=== PATIENT | female | born 1955 | race Caucasian/White ===

== ENCOUNTER → 2018-01-04 10:42 | Outpatient (CLI) | payer OTHER, SELFPAY ==
--- NOTE | 2018-01-04 10:54 | NVE_ITS ---
Venous Exam Indications: 729.5 Pain in limb. IMPRESSIONS 1. There is no evidence of significant Reflux. 2. Superficial vein thrombosis of varicose vein on inner side above left knee Left lower extremity venous duplex evaluation. Doppler flow study including spectral analysis, color and graves scale imaging. Location: Vascular laboratory. Patient status: Outpatient. CRITICAL FINDINGS - Reported to: carmita - Read back and verified. - 01/04/18 - 0 - SVT Tables: Venous flow and imaging: + +-------+ + Location Overall Flow properties + +-------+ + Left common femoral Patent Normal phasicity; spontaneous; normal augmentation; compressible + +-------+ + Left saphenofemoral junction Patent Compressible + +-------+ + Left profunda femoral Patent Compressible + +-------+ + Left femoral Patent Normal phasicity; spontaneous; normal augmentation; compressible + +-------+ + Left greater saphenous Patent Normal phasicity; spontaneous; normal augmentation; compressible + +-------+ + Left popliteal Patent Normal phasicity; spontaneous; normal augmentation; compressible + +-------+ + Left posterior tibial Patent Compressible + +-------+ + Left peroneal Patent Compressible + +-------+ + Left gastrocnemius Patent Compressible + +-------+ + Left soleal Patent Compressible + +-------+ + (Report amended ) Electronically signed by: Leif Castellanos [id number]
== END ==
PROVIDERS: PCP Nurse Practitioner Family; Visit Provider Nurse Practitioner Family
DX: M79.605 Pain in left leg (principal)
CPT/HCPCS: 93971

== ENCOUNTER → 2018-02-09 09:53 | Outpatient (CLI) | payer OTHER, SELFPAY ==
--- NOTE | 2018-02-09 09:55 | MM_ITS ---
MM Dig screening mamm BI w/CAD CAD Screening ORDERING PHYSICIAN : Edwin Bingham MD PATIENT AGE: 62 years GENDER: Female COMPARISON: Previous mammograms from this facility have been purged as per Hospital set guidelines. INDICATION: Routine screening. No hormones. No new complaints previous benign excisional biopsy right breast at 10 o'clock position. TECHNIQUE: Standard CC and MLO images were obtained. R2 CAD reviewed. FINDINGS: Mild asymmetry. Mild to moderate residual fibroglandular elements bilateral. RIGHT BREAST:No areas of concern at the right breast. Follow-up one year on the right recommended LEFT BREAST:Slight architectural irregularity with question slight stellate appearing area on MLO & cc view. However this seems to dissipate on the axillary cc view and could reflect some scarring.. 10 o'clock position left breast.. Would however suggest the patient return for additional spot views here at her convenience. Suggest MLO, 90 degree spot views along with axillary cc spot of this area. If any density persist ultrasound suggested to also surveyed architecture here. IMPRESSION... 1. Left breast: Suggestion minimal focal density with mild architectural distortion at upper-outer quadrant left breast. (Although this does seem to dissipate on axillary cc view) However with this I would recommend additional spot views of upper-outer quadrant left breast. 2. Right breast unremarkable follow-up one year on right. Note(Please also double check history when patient returns, to verify the previous biopsy was indeed at 10 o'clock position RIGHT breast rather than LEFT , as is the mild architectural distortion suggested today towards upper-outer quadrant left breast certainly could be could be compatible with previous biopsy;. I see no such evidence of previous biopsy at upper-outer quadrant right breast this mammogram).) BI-RADS Category: 0 Need Additional Imaging Evaluaiton. RECOMMENDED FOLLOW-UP: IMM - IMMEDIATE FOLLOW-UP RECOMMENDED Spot views left breast upper-outer quadrant (A letter has been sent to the patient regarding results of the study.)
== END ==
PROVIDERS: PCP Nurse Practitioner Family; Visit Provider Family Medicine
DX: Z12.31 Encounter for screening mammogram for malignant neoplasm of breast (principal)
CPT/HCPCS: 77067

== ENCOUNTER → 2018-02-24 15:14 | Outpatient (CLI) | payer OTHER, SELFPAY ==
--- NOTE | 2018-02-24 14:52 | MM_ITS ---
MM Dig mamm DX unilat LT CAD . ORDERING PHYSICIAN : Allie Barrientos MD PATIENT AGE: 62 years GENDER: Female COMPARISON: Recent screening study 02/09/2018 otherwise no previous mammogram INDICATION: Further evaluation asymmetric density upper-outer quadrant left breast TECHNIQUE: Spot views left breast CC and 90 degree and MLO images were obtained. FINDINGS:/LEFT BREAST:: The area of questionable architectural irregularity at the far lateral left breast seen on recent screening study, dissipates on today's spot views. Less evident. I would however recommend a follow-up left mammogram as well as right mammogram in 6 months to confirm stable baseline character since no studies prior to January 2018 for comparison This were to sure minimal density mild asymmetry are stable and baseline --------IMPRESSION: 1. Additional views decreased concern regarding any significant new findings here at upper-outer quadrant Left breast. However I would recommend a follow-up left and right mammogram in 6 months. It to ensure stability of the area evaluated today as well as areas of mild asymmetry bilaterally BI-RADS Category: 3 Benign Finding Short Term Follow-up RECOMMENDED FOLLOW-UP: 6M 6 MONTH FOLLOW-UP *Bilateral mammogram 6 months recommended to confirm & established stable baseline bilaterally (A letter has been sent to the patient regarding results of the study.) .
== END ==
PROVIDERS: PCP Nurse Practitioner Family; Visit Provider Family Medicine
DX: R92.8 Other abnormal and inconclusive findings on diagnostic imaging of breast (principal)
CPT/HCPCS: 77065

== ENCOUNTER → 2018-10-05 10:02 | Outpatient (POV) | payer OTHER, SELFPAY | PROVIDERS: Visit Provider Dermatology | DX: Z00.00 Encounter for general adult medical examination without abnormal findings (principal) ==

== ENCOUNTER → 2018-10-15 08:58 | Outpatient (CLI) | payer OTHER, SELFPAY ==
--- NOTE | 2018-10-15 | NVE_ITS ---
Venous Exam Indications: 729.5 Pain in limb. IMPRESSIONS 1. There is no evidence of significant Reflux. 2. Deep vein thrombosis involving the Left gastrocnemius Left lower extremity venous duplex evaluation. Doppler flow study including spectral analysis, color and graves scale imaging. Location: Vascular laboratory. Patient status: Outpatient. CRITICAL FINDINGS - Reported to: Whitney - Read back and verified. - 10/15/18929 - DVT Tables: Venous flow and imaging: + + + + Location Overall Flow properties + + + + Left common femoral Patent Normal phasicity; spontaneous; normal augmentation; compressible + + + + Left saphenofemoral Patent Compressible junction + + + + Left profunda femoral Patent Compressible + + + + Left femoral Patent Normal phasicity; spontaneous; normal augmentation; compressible + + + + Left greater saphenous Patent Normal phasicity; spontaneous; normal augmentation; compressible + + + + Left popliteal Patent Normal phasicity; spontaneous; normal augmentation; compressible + + + + Left posterior tibial Patent Compressible + + + + Left peroneal Patent Compressible + + + + Left gastrocnemius Partially occluded Partially compressible + + + + Left soleal Patent Compressible + + + + (Report amended ) Electronically signed by: Leif Castellanos [id number]
== END ==
PROVIDERS: PCP Family Medicine; Visit Provider Nurse Practitioner
DX: M79.662 Pain in left lower leg (principal)
CPT/HCPCS: 93971

== ENCOUNTER → 2018-11-16 13:16 | Outpatient (POV) | payer OTHER, SELFPAY | PROVIDERS: Visit Provider Dermatology | DX: Z00.00 Encounter for general adult medical examination without abnormal findings (principal) ==

== ENCOUNTER → 2020-05-21 16:50 | Outpatient (CLI) | payer MEDICARE, SELFPAY ==
--- NOTE | 2020-05-21 16:54 | MR_ITS ---
PROCEDURE: MR ELBOW LT WO CON CLINICAL INDICATION: RUPTURE OF LEFT DISTAL BICEPS TENDON S/P INJURY May WITH BRUISING TPO ANTERIOR SURFACE OF LEFT ELBOW AND DISTAL HUMERUS. PT STATES SHE HEARD AND FELT A POP WHEN SHE RAISED A BAG OF FEED UP. COMPARISON: No exams were available for comparison TECHNIQUE: Routine multiplanar multi echo sequences are performed without gadolinium enhancement. FINDINGS: There does not appear to be a complete tear of the bicipital tendon. There is thinning of the bicipital tendon at its insertion but no definite tear.. Please correlate with clinical findings. Brachialis tendon appears intact. The ulnar collateral ligament appears intact. There is some increased T2 signal in the cephalad portion of the radial collateral ligament which could represent partial tear or sprain. No fracture or dislocation. No abnormal fluid collections.. There is increased T2 signal at the common extensor tendon insertion which may be due to lateral epicondylitis or tear of the lateral collateral ligament.. The common flexor tendon has an unremarkable appearance. IMPRESSION: 1. No evidence of bicipital tendon tear at the elbow. There is some thinning of the bicipital tendon distally which is nonspecific.. 2. Lateral epicondylitis versus tear of the extensor tendon at the lateral epicondyle Dictated by: Leif Castellanos MD 05/24/2020 12:06 Leif Castellanos MD in [place] 05/24/2020 12:06
== END ==
PROVIDERS: PCP Family Medicine; Visit Provider Family Medicine
DX: S46.212A Strain of muscle, fascia and tendon of other parts of biceps, left arm, initial encounter (principal)
CPT/HCPCS: 73221

== ENCOUNTER → 2020-07-27 10:45 | Outpatient (CLI) | payer MEDICARE, SELFPAY | PROVIDERS: PCP Family Medicine; Visit Provider Family Medicine | DX: Z03.818 Encounter for observation for suspected exposure to other biological agents ruled out (principal) | CPT/HCPCS: U0003 ==

== ENCOUNTER → 2021-05-07 07:30 | Outpatient (CLI) | payer MEDICARE, SELFPAY ==
--- NOTE | 2021-05-07 07:42 | XR_ITS ---
PROCEDURE: XR CHEST 2V CLINICAL HISTORY: CHEST PAIN SOA,,NONSMOKER COMPARISON: No exams were available for comparison FINDINGS: The cardiomediastinal silhouette and pulmonary vascularity are within normal limits. There is hyperinflation with vascular attenuation consistent with small airway disease such as COPD, asthma, or bronchitis. No lobar consolidation or collapse Minimal S curvature in the thoracic spine IMPRESSION: Hyperinflation otherwise negative Dictated by: Leif Castellanos MD 05/07/2021 07:55 Leif Castellanos MD in [place] 05/07/2021 07:55
[2021-05-07 07:53] LABS: Microscopic, Urine URINE MICROSCOPIC (MICROSCOPIC)
--- NOTE | 2021-05-07 08:10 | ECG_ITS ---
APPROVED REPORT Exam: Resting ECG HR:61 bpm ECG Measurements Heart Rate 61 AXES KS 182 P 54 QRSd 80 QRS 65 QT 392 T 54 QTc 394 Conclusion Normal sinus rhythm Cannot rule out Anterior infarct, age undetermined Abnormal ECG Electronically signed by : Partha Perales MD 05/07/2021 10:44:28
[2021-05-07 08:15] LABS: Basophils # 0.1 K/mm3 (0-0.2); Basophils % 1.1 % (0.1-2.0); Eosinophils # 0.3 K/mm3 (0.0-0.4); Eosinophils % 5.4 % (0.1-12.0); Hematocrit 43.6 % (37.0-47.0); Hemoglobin 13.9 g/dL (12.2-16.2); Lymphocytes # 1.5 K/mm3 (0.7-4.5); Lymphocytes % 26.6 % (10-50); Mean Corpuscular HGB Conc 31.9 g/dL (31.8-35.4); Mean Corpuscular Volume 94.2 fl (81-99); Mean Platelet Volume 7.5 fl (7.4-10.4); Monocytes # 0.4 K/mm3 (0.1-1.0); Monocytes % 7.1 % (1.7-9.3); Neutrophils # 3.3 K/mm3 (1.8-7.8); Neutrophils % 59.7 % (37.0-80.0); Platelet Count 271 K/mm3 (142-424); Red Blood Count 4.63 M/mm3 (4.20-5.40); Red Cell Distribution Width 13.2 % (11.5-17.5); White Blood Count 5.5 K/mm3 (4.8-10.8)
[2021-05-07 08:16] LABS: Appearance,Urine CLEAR (Clear); Bilirubin,Urine Negative (Negative); Blood, Urine TRACE-I (Negative); Color,Urine YELLOW (Yellow); Glucose,Urine (UA) Negative (Negative); Ketones,Urine Negative (Negative); Leukocyte Esterase,Urine 3+ (Negative); Nitrate,Urine Negative (Negative); PH,Urine 7.5 (5.0-8.5); Protein,Urine Negative (Negative); Specific Gravity, Urine 1.015 (1.005-1.030); Urobilinogen,Urine 0.2 EU/dl (0.2)
[2021-05-07 08:28] LABS: Bacteria,Urine 1+ /lpf; WBC,Urine 20-50 #/hpf (0-3)
[2021-05-07 08:37] LABS: Activated Partial Thrombo Time 26.6 seconds (22.8-30.6); INR 0.89 (0.9-1.1); Prothrombin Time 10.6 seconds (10.1-12.5)
[2021-05-07 08:43] LABS: Chloride 106 mmol/L (98-107); Sodium 141 mmol/L (136-145)
[2021-05-07 08:46] LABS: Anion Gap 12.5 mEq/L (5-15); Blood Urea Nitrogen 16 mg/dl (7-17); Carbon Dioxide 27 mmol/L (22.0-30.0); Estimated Glomerular Filt Rate 84 ml/min (>60); GFR (African American) 101 ML/MIN (>60); Glucose 100 mg/dl (74-100); Potassium 4.5 mmoL/L (3.5-5.1)
== END ==
PROVIDERS: PCP Family Medicine; Visit Provider Family Medicine
DX: Z01.818 Encounter for other preprocedural examination (principal); Z79.82 Long term (current) use of aspirin; Z51.81 Encounter for therapeutic drug level monitoring; R82.90 Unspecified abnormal findings in urine
CPT/HCPCS: 36415; 71046; 80048; 81001; 85025; 85610; 85730; 87086; 87088; 93005

== ENCOUNTER → 2022-10-07 08:27 | Outpatient (CLI) | payer MEDICARE, SELFPAY ==
--- NOTE | 2022-10-07 08:30 | MM_ITS ---
PROCEDURE INFORMATION: Exam: MG Bilateral Screening 3D Mammography Exam date and time: 10/07/2022 8:23 AM Age: 67 years old Clinical indication: Screening. No family history of breast cancer. History of benign right excisional biopsy. TECHNIQUE: Imaging protocol: Bilateral Screening tomosynthesis and 2D mammography including computer-aided detection (CAD) when performed. COMPARISON: 1. MG DXLT MM Dig mamm DX unilat LT CAD 02/24/2018 3:27 PM 2. MG SCBI MM Dig screening mamm BI w/CAD 02/09/2018 10:06 AM FINDINGS: MAMMOGRAPHY: Breast composition: There are scattered areas of fibroglandular density. Mass: None. Architectural distortion: None. Calcifications: No suspicious calcifications. Asymmetric density: None. Skin thickening: None. Axillary adenopathy: None. IMPRESSION: No mammographic evidence of malignancy. Annual screening is recommended unless otherwise clinically indicated. ASSESSMENT: BI-RADS Category 1: Negative
--- NOTE | 2022-10-07 08:30 | XR_ITS ---
FINAL REPORT TECHNIQUE: Bone densitometry calculations of the lumbar spine and left hip were obtained. CLINICAL HISTORY: . post menopausal screening FINDINGS: DEXA BONE DENSITY AXIAL SKELETON Using L1-4, the bone mineral density of the spine is 1.075 g/cm2, corresponding to T-score of 0.3. Note these values are likely falsely elevated secondary to hypertrophic change. Using the right hip, the bone mineral density of the femoral neck is 0.679 g/cm2, corresponding to a T-score of -1.5. Using the left hip, the bone mineral density of the femoral neck is 0.703 g/cm2, corresponding to a T-score of -1.3. NOTE: T-score: Standard deviation compared with peak bone mass of young adult mean. *Following the recommendations of the International Society of Bone densitometry, classification of hip BMD is based on the lower of two T-scores; total hip or femoral neck. IMPRESSION: Diminished bone mineral density of the lumbar spine and hips consistent with osteopenia. FRAX 10 year fracture risk is 9.7% for a hip fracture and 1.2% for a major osteoporotic fracture based on the right hip results. Reviewed, Interpreted and Dictated by Rory Osborn MD Transcribed by Ruth Galaviz Authenticated and . [facility]
[2022-10-07 08:57] LABS: Basophils # 0.1 K/mm3 (0-0.2); Eosinophils # 0.4 K/mm3 (0.0-0.4); Eosinophils % 5.8 % (0.1-12.0); Hematocrit 42.4 % (37.0-47.0); Hemoglobin 13.9 g/dL (12.2-16.2); Lymphocytes # 1.6 K/mm3 (0.7-4.5); Lymphocytes % 22.1 % (10-50); Mean Corpuscular HGB Conc 32.7 g/dL (31.8-35.4); Mean Corpuscular Hemoglobin 29.8 pg (27.0-31.2); Mean Corpuscular Volume 90.9 fl (81-99); Mean Platelet Volume 7.3 fl (7.4-10.4); Monocytes # 0.4 K/mm3 (0.1-1.0); Monocytes % 5.4 % (1.7-9.3); Neutrophils # 4.9 K/mm3 (1.8-7.8); Neutrophils % 65.7 % (37.0-80.0); Platelet Count 295 K/mm3 (142-424); Red Blood Count 4.67 M/mm3 (4.20-5.40); White Blood Count 7.4 K/mm3 (4.8-10.8)
[2022-10-07 09:46] LABS: Alanine Aminotransferase 14 U/L (12-78); Albumin Level 4.2 g/dl (3.5-5.0); Albumin/Globulin Ratio 1.7 (1.1-1.8); Alkaline Phosphatase 84 U/L (38-126); Anion Gap 9.5 mEq/L (5-15); Aspartate Amino Transferase 23 U/L (14-36); Bilirubin,Total 0.9 mg/dl (0.2-1.3); Blood Urea Nitrogen 14 mg/dl (7-17); Carbon Dioxide 29 mmol/L (22.0-30.0); Chloride 107 mmol/L (98-107); Chol/HDL Ratio 2.9 (1-3.5); Cholesterol 162 mg/dl (140-200); Estimated Glomerular Filt Rate 83 ml/min (>60); GFR (African American) 101 ML/MIN (>60); Globulin 2.5 g/dL (1.3-3.2); Glucose 95 mg/dl (74-100); HDL Cholesterol 56 mg/dl (40-60); Potassium 4.5 mmoL/L (3.5-5.1); Sodium 141 mmol/L (136-145); Total Protein,Serum 6.7 g/dl (6.3-8.2); Triglycerides 94 mg/dl (30-150); VLDL Cholesterol 19 mg/dL (0-40)
[2022-10-07 09:57] LABS: Direct LDL Cholesterol 87.53 mg/dL (100-129)
[2022-10-07 10:15] LABS: Thyroid Stimulating Hormone 4.24 uIU/mL (0.465-4.68)
== END ==
PROVIDERS: PCP Family Medicine; Visit Provider Family Medicine
DX: R00.1 Bradycardia, unspecified (principal); Z12.31 Encounter for screening mammogram for malignant neoplasm of breast; Z78.0 Asymptomatic menopausal state
CPT/HCPCS: 36415; 77063; 77067; 77080; 80053; 80061; 84443; 85025

== ENCOUNTER 2024-03-16 10:51 | Outpatient (CLI) | payer MEDICARE, SELFPAY ==
--- NOTE | 2024-03-16 11:03 | ECG_ITS ---
APPROVED REPORT Exam: Resting ECG HR:56 bpm ECG Measurements Heart Rate 56 AXES MA 178 P 36 QRSd 84 QRS 50 QT 401 T 50 QTc 393 Conclusion SINUS BRADYCARDIA LOW QRS VOLTAGE IN PRECORDIAL LEADS [QRS DEFLECTION < 1.0 mV IN CHEST LEADS] BORDERLINE ECG UNCONFIRMED REPORT Electronically signed by : Partha Perales MD 03/19/2024 10:55:25
--- NOTE | 2024-03-16 11:07 | XR_ITS ---
FINAL REPORT CLINICAL HISTORY: [facility] PA[facility],SOB OR LUNG CONDITIONS FINDINGS: PA and lateral views of the chest are obtained. There is no prior exam for comparison. The cardiac and mediastinal silhouettes are within normal limits. The lungs are clear. There is no pleural effusion, pneumothorax, or acute osseous abnormality. IMPRESSION: No radiographic evidence of acute cardiac or pulmonary disease. Reviewed, Interpreted and Dictated by Veronique Asencio MD Transcribed by Mikaela Alford Authenticated and [facility]
== END 2024-03-16 23:59 | disposition home or self-care (01) ==
PROVIDERS: PCP Family Medicine; Visit Provider Physician Assistant
DX: Z01.818 Encounter for other preprocedural examination (principal)
CPT/HCPCS: 71046; 93005

== ENCOUNTER 2024-05-30 10:00 | Outpatient (RCR) | payer MEDICARE, SELFPAY | END 2024-05-30 10:05 | disposition home or self-care (01) | LOC: PT 10:00 | PROVIDERS: Visit Provider Orthopaedic Surgery Adult Reconstructive Orthopaedic Surgery | DX: M17.12 Unilateral primary osteoarthritis, left knee (principal) | CPT/HCPCS: 97014; 97016; 97110; 97140; 97163; 97164; G0283 ==

== ENCOUNTER 2025-01-10 10:01 | Outpatient (CLI) | payer MEDICARE, SELFPAY ==
--- NOTE | 2025-01-10 10:05 | MM_ITS ---
PROCEDURE INFORMATION: Exam: MG Bilateral Screening 3D Mammography Exam date and time: 01/10/2025 10:17 AM Age: 69 years old Clinical indication: Screening mammogram. History of right excisional biopsy TECHNIQUE: Imaging protocol: Bilateral Screening tomosynthesis and 2D mammography including computer-aided detection (CAD) when performed. COMPARISON: 1. MG MM DIG SCREENING MAMM BI W/CAD 10/07/2022 8:23 AM 2. MG DXLT MM Dig mamm DX unilat LT CAD 02/24/2018 3:27 PM 3. MG SCBI MM Dig screening mamm BI w/CAD 02/09/2018 10:06 AM FINDINGS: MAMMOGRAPHY: Breast composition: There are scattered areas of fibroglandular density. Mass: None. Architectural distortion: No new or suspicious architectural distortion. Calcifications: No new or suspicious calcifications are present Asymmetric density: No new or suspicious asymmetric density is present Skin thickening: None. Axillary adenopathy: None. IMPRESSION: No mammographic evidence of malignancy. Recommend annual screening mammography unless otherwise clinically indicated. ASSESSMENT: BI-RADS category 1: Negative.
== END 2025-01-10 23:59 | disposition home or self-care (01) ==
LOC: RAD 10:02
PROVIDERS: PCP Family Medicine; Visit Provider Family Medicine
DX: R92.323 Mammographic fibroglandular density, bilateral breasts (principal)
CPT/HCPCS: 77063; 77067

== ENCOUNTER 2025-02-06 09:14 | Outpatient (CLI) | payer MEDICARE, SELFPAY ==
--- OUTSIDE RECORDS SUMMARY | 2024-07-01 06:15 | XMS_ITS ---
Author Organization [facility] Address [address] [facility] [address] [facility] [address] [place] [phone] Care Team Providers Care Associate Professor Of Geography Name Role Phone Ibeth Bingham Primary Care Provider [phone] Teressa Cassi Unavailable [phone] Allergies No Known Allergies Results Component Value Reference Range Notes CBC Fingerstick (in house) Reviewed date:07/01/2024 12:44:56 PM Interpretation: Performing Lab: Notes/Report: wbc 9.3 3.5 - 10 lym 12.7 15 - 50 mid 3.3 2 - 15 gran 84.0 35 - 80 rbc 4.84 3.5 - 5.5 hgb 13.9 11.5 - 16.5 hct 44.7 35 - 55 mcv 92.5 75 - 100 mch 28.9 25 - 35 mchc 31.2 31 - 38 plat 206 100 - 400 REASON FOR VISIT congestion Medications Medication SIG (Take, Route, Frequency, Duration) Notes Start Date End Date Status Eliquis 2.5 MG 1 tab(s) orally 2 ti mes a day for 30 days Active Zithromax Z-Ezekiel 250 MG 2 pills first day then one daily for 4 days orally as directed for 5 days 07/01/2024 Active Albuterol Sulfate HFA 108 (90 Base) MCG/ACT 1 puff as needed Inhalation every 4 hrs, prn 07/01/2024 Active Vital Signs Blood pressure systolic 110 mm Hg 07/01/20 24 Blood pressure diastolic 70 mm Hg 024 Heart Rate 74 /min 07/01/2024 Height 65 in 07/01/2024 Weight 147.6 lbs 07/01/2024 BMI 24.56 kg/m2 07/01/2024 Encounters Encounter Location Date Provider Diagnosis [facility] [address] [facility] [address] [place] [phone] 07/01/2024 Cassi Gannon Acute URI J06.9 and Bronchitis J40 Assessments Encounter Date Diagnosis (ICD Code) Assessment Notes Treatment Notes Treatment Clinical Notes Section Notes 07/01/2024 Acute URI (ICD-10 - J06.9) 07/01/2024 Bronchitis (ICD-10 - J40) Plan Of Treatment Medication Medication Name Sig Start Date Stop Date Notes Zithromax Z-Ezekiel 250 MG 2 pills first day then one daily for 4 days orally as directed for 5 days 07/01/2024 Albuterol Sulfate HFA 108 (9 0 Base) MCG/ACT 1 puff as needed Inhalation every 4 hrs, prn 07/01/2024 Next Appt Details Follow Up: prn, Reason: Progress Notes * GALI BUSCHOB:1955 (69 yo F)Acc No.[id number]:07/01/2024 Progress Notes Patient: MEHRDAD CHOW Provider: JOSE Gipson :1955 A ge:68 Y S ex:Female Date:07/01/2024 Address:[address] [place] [address] [place], [id number] Pcp:Ibeth Bingham Subjective: * Chief Complaints: * 1 . Congestion. * HPI: E NT/respiratory: 68 year old female presents with c/o cough. c/o nasal congestion g reen drainage. c/o Fever n ot consistent. c/o ear pain s topped up. Denies : sore throat. D enies : Chest Pain. D enies : Short of Breath. D enies : headache. D enies : body aches. * Medical History: L T Leg DVT, 10/2018, Chronic Phlebitis, LT Leg SVT, 08/2022. * Surgical History: R T Breast Cyst Removal 1999, Hysterectomy 07/11/2021, Bladder Suspension 07/20/2022, Left Knee Replacement 03/31/2024. * Hospitalization/Major Diagno stic Procedure: L T Leg Pain, DX with DVT- [facility] ER 10/15/2018. * Family History: F ather: 79 yrs, renal failure. M other: alive 88 yrs. 2 brother(s) - healthy. 3 son(s) , 2 daughter(s) . . Daughter with Down's syndrome. * Social History: C URRENT TOBACCO USE: No . C affeine: yes, frequency:coffee, 3 to 4 cups a day. Home smoke detector use: yes. Marital Status: . Past smoking status: no. Alcohol: No. Sexually active: yes. * Medications: T aking Eliquis 2.5 MG Tablet 1 tab(s) orally 2 times a day , Medication List reviewed and reconciled with the patient * Allergies: N .K.D.A. Objective: * Vitals: W t:147.6, Temp:98.0, BP:110/70, HR:74, O2 Sat:92% on RA, Nurse:ALBIN, Ht: 65, BMI:24.56. * Examination: E NT/Respiratory: General Appearance: N AD. Ears: a uditory canals normal bilaterally, TM's WNL. Nose : turbinates red, congested. Sinuses : tender maxillary sinuses bilaterally. Oral cavity : erythema without exudate on pharynx, PND present. Neck : n o cervical lymphadenopathy. Heart : R RR, normal S1 S2, no murmurs. Lungs: expiratory wheezes, no rales. ? Assessment: * Assessment: 1. A brody BOUDREAUX - J06.9 (Primary) 2 . Lorin mccauley - J40 Plan: * Treatment: Value Reference Range w bc 9.3 3.5 - 10 * l ym 12.7 15 - 50 * m id 3.3 2 - 15 * g ran 84.0 35 - 80 * r bc 4.84 3.5 - 5.5 * h gb 13.9 11.5 - 16.5 * h ct 44.7 35 - 55 * m cv 92.5 75 - 100 * m ch 28.9 25 - 35 * m chc 31.2 31 - 38 * p lat 206 100 - 400 * Evelyn Hahn 07/01/2024 10:42 :58 AM > Provider reviewed results while patient in office.Cassi Gannon 07/01/2024 12:44:51 PM > 2.?Bronchitis? Start Albuterol Sulfate HFA Aerosol Solution, 108 (90 Base) MCG/ACT, 1 puff as needed, Inhalation, every 4 hrs, prn, 1, Refills 0;?Start Zithromax Z-Ezekiel Tablet, 250 MG, 2 pills first day then one daily for 4 days, orally, as directed, 5 days, 1, Refills 0.?? * Procedure Codes: 9 [address] [place], [address] CAPILLARY BLOOD DRAW, 13239 CBC WITH AUTO DIFF * Follow Up: p rn * Billing Information: * Visit Code: 21511 Office Visit, Est Pt., Level 3. * Procedure Codes: [address] [place]. [address] CAPILLARY BLOOD DRAW. 23291 CBC WITH AUTO DIFF. * Electronic signature of JOSE Maher on 02/06/2025 at 09:18 AM EDT Sign off status: Pending * Provider: JOSE Gipson Date: 08/31/2023 Generated for Irenei ng/Facorrieg/eTransmitting on: 0 02/06/2025 09:18 AM EDT History and Physical Notes * HPI (History of Present Illness) Category Sub-Category Detail Notes Category Not es ENT/respiratory sore throat ear pain stopped up Short of Breath Chest Pain cough Fever not consistent headache nasal congestion green drainage body aches Examination Category Sub-Category Detail Notes Category Not es ENT/Respiratory Oral cavity : erythema without exudate on pharynx, PND present Sinuses : tender maxillary sin uses bilaterally Ears: auditory canals norm al bilaterally, TM's WNL Neck : no cervical lymphade nopathy Heart : RRR, normal S1 S2, n o murmurs Lungs: expiratory wheezes, no rales General Appearance: NAD Nose : turbinates red, mukund ested
--- OUTSIDE RECORDS SUMMARY | 2024-07-08 06:40 | XMS_ITS ---
Author Organization [facility] Address [facility] [address] [place] [id number] Care Team Providers Care Parasitologist Name Role Phone Ibeth Bingham Primary Care Provider [phone] KamarCassi herr Unavailable [phone] Allergies No Known Allergies Results Component Value Reference Range Notes Influenza Screen (in house) Reviewed date:07/08/2024 04:55:32 PM Interpretation:neg Performing Lab: Notes/Report: neg results neg CBC Fingerstick (in house) Reviewed date:07/08/2024 11:42:51 AM Interpretation: Performing Lab: Notes/Report: wbc 7.4 3.5 - 10 lym 16.5 15 - 50 mid 5.7 2 - 15 gran 77.8 35 - 80 rbc 4.82 3.5 - 5.5 hgb 13.9 11.5 - 16.5 hct 43.8 35 - 55 mcv 90.7 75 - 100 mch 28.9 25 - 35 mchc 31.8 31 - 38 plat 237 100 - 400 Covid test (in house) Reviewed date:07/08/2024 04:55:24 PM Interpretation:neg Performing Lab: Notes/Report: neg Result: neg REASON FOR VISIT possible sinus infection Medications Medication SIG (Take, Route, Frequency, Duration) Notes Start Date End Date Status Albuterol Sulfate HFA 108 (90 Base) MCG/ACT 1 puff as needed Inhalation every 4 hrs, prn Active Flonase Allergy Relief 50 MCG/ACT 1 spray in each nostril Nasally Once a day 07/08/2024 Active Eliquis 2.5 MG 1 tab(s) orally 2 ti mes a day for 30 days Active Bromfed DM 2-30-10 MG/5ML 5-10 mL Orally four times a day, prn 07/08/2024 Active Vital Signs Blood pressure systolic 120 mm Hg 07/08/20 24 Blood pressure diastolic 70 mm Hg 024 Heart Rate 75 /min 07/08/2024 Height 65 in 07/08/2024 Weight 147.6 lbs 07/08/2024 BMI 24.56 kg/m2 07/08/2024 Encounters Encounter Location Date Provider Diagnosis [facility] [address] [place] [id number] 07/08/2024 Cassi Gannon Acute URI J06.9 ; Bronchitis J40 and History of DVT (deep vein thrombosis) Z86.718 Assessments Encounter Date Diagnosis (ICD Code) Assessment Notes Treatment Notes Treatment Clinical Notes Section Notes 07/08/2024 Acute URI (ICD-10 - J06.9) 07/08/2024 Bronchitis (ICD-10 - J40) 07/08/2024 History of DVT (deep vein thrombosis) (ICD-10 - Z86.718) Plan Of Treatment Medication Medication Name Sig Start Date Stop Date Notes Albuterol Sulfate HFA 108 (9 0 Base) MCG/ACT 1 puff as needed Inhalation every 4 hrs, prn Flonase Allergy Relief 50 MCG/ACT 1 spray in each nostril Nasally Once a day 07/08/2024 Eliquis 2.5 MG 1 tab(s) orally 2 ti mes a day for 30 days Bromfed DM 2-30-10 MG/5ML 5-10 mL Orally four times a day, prn 07/08/2024 Next Appt Details Follow Up: prn, Reason: Progress Notes * GALI BUSCHOB:1955 (69 yo F)Acc No.[id number]:07/08/2024 Progress Notes Patient: MEHRDAD CHOW Provider: JOSE Gipson :1955 A ge:68 Y S ex:Female Date:07/08/2024 Address:[facility] [id number] Pcp:Ibeth Bingham Subjective: * Chief Complaints: * 1 . Possible sinus infection. * HPI: E NT/respiratory: 68 year old female presents with c/o cough P t states she is better after taking the zithromax but still has a cough with a s mall amount of white sputum and a stopped up left maxillary sinus. c/o nasal congestion. c/o ear pain f ullness, left side. Denies : Fever. D enies : Chest Pain. D enies : Short of Breath. Pt would like a refill on her eliquis. * ROS: D ERMATOLOGY: no R ursula. n o H woody. G ASTROENTEROLOGY: no N ausea. n o V omiting. n o D iarrhea.? U ROLOGY: no D ifficulty urinating. n o B lood in urine. * Medical History: L T Leg DVT, 10/2018, Chronic Phlebitis, LT Leg SVT, 08/2022. * Surgical History: R T Breast Cyst Removal 1999, Hysterectomy 07/11/2021, Bladder Suspension 07/20/2022, Left Knee Replacement 03/31/2024. * Hospitalization/Major Diagno stic Procedure: L T Leg Pain, DX with DVT- [facility] ER 10/15/2018. * Family History: F ather: [...] tab(s) orally 2 times a day , Taking Albuterol Sulfate HFA 108 (90 Base) MCG/ACT Aerosol Solution 1 puff as needed Inhalation every 4 hrs, prn , Medication List reviewed and reconciled with the patient * Allergies: N .K.D.A. Objective: * Vitals: W t:147.6, Temp:97.9, BP:120/70, HR:75, O2 Sat:95% on RA, Nurse:ALBIN, Ht: 65, BMI:24.56. * Examination: E NT/Respiratory: General Appearance: N AD. Ears: left TM with effusion, no erythema. Nose : turbinates red, congested. Sinuses : tender maxillary sinuses bilaterally, worse on the left. Oral cavity : erythema without exudate on pharynx, PND present. Neck : n o cervical lymphadenopathy. Heart : R RR, normal S1 S2, no murmurs. Lungs: c lear to auscultation bilaterally. Assessment: * Assessment: 1. A brody URI - J06.9 (Primary) 2 . B ronchitis - J40 3 .?History of DVT (deep vein thrombosis) - Z86.718 Plan: * Treatment: Value Reference Range r esults neg * Evelyn Hahn 07/08/2024 2:17: 13 PM > Provider reviewed results while patient in office.Cassi Gannon 07/08/2024 4:55:30 PM > ?LAB: CBC Fingerstick (in house) (Collection Date & Time - 07/08/2024)* Value Reference Range w bc 7.4 3.5 - 10 * l ym 16.5 15 - 50 * m id 5.7 2 - 15 * g ran 77.8 35 - 80 * r bc 4.82 3.5 - 5.5 * h gb 13.9 11.5 - 16.5 * h ct 43.8 35 - 55 * m cv 90.7 75 - 100 * m ch 28.9 25 - 35 * m chc 31.8 31 - 38 * p lat 237 100 - 400 * Evelyn Hahn 07/08/2024 11:11 :31 AM > Provider reviewed results while patient in office.Cassi Gannon 07/08/2024 11:42:50 AM > ?LAB: Covid test (in house) (Collection Date & Time - 07/08/2024)?neg* Value Reference Range R esult: neg * Eveyln Hahn 07/08/2024 2:17: 31 PM > Provider reviewed results while patient in office.Cassi Gannon 07/08/2024 4:55:22 PM > 2.?Bronchitis? Continue Albuterol Sulfate HFA Aerosol Solution, 108 (90 Base) MCG/ACT, 1 puff as needed, Inhalation, every 4 hrs, prn.??3.?History of DVT (deep vein thrombosis)? Refill Eliquis Tablet, 2.5 MG, 1 tab(s), orally, 2 times a day, 30 days, 60 Tablet, Refills 11. ? * Procedure Codes: 9 47[address] [place], [address] CAPILLARY BLOOD DRAW, 45850 CBC WITH AUTO DIFF, 46223 Flu Test- Nasal Swab, Modifiers: QW , 43669 COVID TEST IN HOUSE, Modifiers: QW * Follow Up: p rn * Billing Information: * Visit Code: 74078 Office Visit, Est Pt., Level 3. * Procedure Codes: [address] [place]. [address] CAPILLARY BLOOD DRAW. 54159 CBC WITH AUTO DIFF. 29294 Flu Test- Nasal Swab. Modifiers: QW 07213 COVID TEST IN HOUSE. Modifiers: QW * Electronic signature of JOSE Maher on 02/06/2025 at 09:18 AM EDT Sign off status: Pending * Provider: JOSE Gipson Date: 1 09/07/2023 Generated for Mike david/Facorrieg/eTransmitting on: 0 02/06/2025 09:18 AM EDT History and Physical Notes * HPI (History of Present Illness) Category Sub-Category Detail Notes Category Not es ENT/respiratory ear pain fullness, left side Pt w ould like a refill on her eliquis Short of Breath Chest Pain cough Pt states she is bet ter after taking the zithromax but still has a cough with a small amount of white sputum and a stopped up left maxillary sinus Fever nasal congestion Examination Category Sub-Category Detail Notes Category Not es ENT/Respiratory Oral cavity : erythema without exudate on pharynx, PND present Sinuses : tender maxillary sin uses bilaterally, worse on the left Ears: left TM with effusio n, no erythema Neck : no cervical lymphade nopathy Heart : RRR, normal S1 S2, n o murmurs Lungs: clear to auscultatio n bilaterally General Appearance: NAD Nose : turbinates red, mukund ested
--- OUTSIDE RECORDS SUMMARY | 2025-01-26 07:15 | XMS_ITS ---
Author Organization [facility] Address [address] [facility] [address] [place] [id number] Care Team Providers Care Grill Cook Name Role Phone Ibeth Bingham Primary Care Provider Cassi Ganonn Unavailable [phone] Allergies No Known Allergies Results Component Value Reference Range Notes CBC Venipuncture (in house) Reviewed date:01/27/2025 12:36:21 AM Interpretation: Performing Lab: Notes/Report: wbc 6.3 3.5 - 10 lymph 20.0 15 - 50 mid 6.2 2 - 15 gran 73.8 35 - 80 rbc 4.70 3.5 - 5.5 hgb 14.1 11.5 - 16.5 hct 42.5 35 - 55 mcv 90.4 75 - 100 mch 29.9 25 - 35 mchc 33.1 31 - 38 platlet 235 100 - 400 P-Vitamin B12 Reviewed date:01/27/2025 09:45:41 AM Interpretation:Normal Performing Lab: Notes/Report: Test performed by [facility] [address] [place], [place] [address] [address]y [address], [place] [address] Fernando Jacobs MD, Architectural Designer CLIA: [id number] Vitamin B12 174 620-4505 pg/mL P-Comprehensive Metabolic Pa kaitlin (CMP) Reviewed date:01/27/2025 09:45:41 AM Interpretation:Normal Performing Lab: Notes/Report: Test performed by [facility] [address] [place], [place] [address] Rudy , Cecy C, [place] [address] Fernando Jacobs MD, Architectural Designer CLIA: [id number] Sodium 140 135-145 mmol/L Potassium 4.6 3.5-5.3 mmol/L Chloride 103 97-108 mmol/L CO2 26 22-32 mmol/L Glucose 101 65-99 mg/dL BUN 14 8-23 mg/dL Creatinine 0.72 0.50-1.00 mg/dL Calcium 9.6 8.6-10.4 mg/dL eGFR by Creatinine 90 >59 mL/min/1.73m2 Protein 6.7 6.0-8.3 g/dL Albumin 4.5 3.5-5.3 g/dL Alkaline Phosphatase 95 35-121 IU/L ALT (SGPT) 12 <5-47 IU/L AST (SGOT) 16 <5-40 IU/L Bilirubin, Total 1.0 <0.2-1.2 mg/dL A/G Ratio 2.0 1.1-2.5 P-Magnesium Reviewed date:01/27/2025 09:45:41 AM Interpretation:Normal Performing Lab: Notes/Report: Test performed by [facility] [address] [place] [address] , [address], [place] [address] Fernando Jacobs MD, Architectural Designer CLIA: [id number] Magnesium 2.3 1.6-2.4 mg/dL P-TSH reflex to FT4 Reviewed date:01/27/2025 09:45:41 AM Interpretation:Normal Performing Lab: Notes/Report: Test performed by [facility] [address] [place] [address] , [facility] C, [place] [address] Fernando Jacobs MD, Architectural Designer CLIA: [id number] TSH reflex to FT4 3.29 0.43-5.25 mU/L REASON FOR VISIT tingling in left arm Medications Medication SIG (Take, Route, Frequency, Duration) Notes Start Date End Date Status Bromfed DM 2-30-10 MG/5ML 5-10 mL Orally four times a day, prn 07/08/2024 Not-Taking Flonase Allergy Relief 50 MCG/ACT 1 spray in each nostril Nasally Once a day 07/08/2024 Not-Taking Eliquis 2.5 MG 1 tab(s) orally 2 ti mes a day for 30 days Active Albuterol Sulfate HFA 108 (90 Base) MCG/ACT 1 puff as needed Inhalation every 4 hrs, prn Not-Taking Problems Problem Type SNOMED Code ICD Code Onset Dates Problem Status W/U Status Risk Notes Problem [id number] Paresthesia (R20.2) Active confirmed Problem [id number] 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) Active confirmed Vital Signs Blood pressure systolic 120 mm Hg 01/27/20 25 Blood pressure diastolic 68 mm Hg 025 Heart Rate 71 /min 01/26/2025 Height 65 in 01/26/2025 Weight 147.6 lbs 01/26/2025 BMI 24.56 kg/m2 01/26/2025 Encounters Encounter Location Date Provider Diagnosis [facility] [address] [facility] [address] [place] [id number] 01/26/2025 Cassi Crownemesio Paresthesia R20.2 ; Chronic embolism and thrombosis of unspecified deep veins of left lower extremity I82.502 and BMI 24.0-24.9, adult Z68.24 Assessments Encounter Date Diagnosis (ICD Code) Assessment Notes Treatment Notes Treatment Clinical Notes Section Notes 01/26/2025 Paresthesia (ICD-10 - R20.2) Will get labs first. If labs are all normal, will need an x-ray of the neck and possibly nerve conduction studies on the legs. 01/26/2025 Chronic embolism and thrombosis of unspecified deep veins of left lower extremity (ICD-10 - I82.502) 01/26/2025 BMI 24.0-24.9, adult (ICD-10 - Z68.24) Plan Of Treatment Treatment Notes Assessment Notes Paresthesia Will get labs first. If labs are all normal, will need an x-ray of the neck and possibly nerve conduction studies on the legs. Next Appt Details Follow Up: via phone to repo rt test results, Reason: Progress Notes * GALI BUSCHOB:1955 (69 yo F)Acc No.[id number]:01/26/2025 Progress Notes Patient: MEHRDAD CHOW Provider: JOSE Gipson :1955 A ge:69 Y S ex:Female Date:01/26/2025 Address:[address] [place] [address] [place], [id number] Pcp:Ibeth Bingham Subjective: * Chief Complaints: * 1 . Tingling in left arm. * HPI: E lbow/Arm: 69 year old female presents with c/o tingling/ numbness P t is here today with c/o tingling in the left arm. Pt sts she would like her magnesium level checked today as well. Pt sts the tingling in her arm started back in Feburary. Pt is unsure if it could be neuopathy or if it is coming from her neck.. A nkle/Foot: c/o Pain P t sts her feet and toes have a burning at night and tingling sensation as well. Pt sts this has been ongoing in her feet for a long time. * ROS: D ERMATOLOGY: no R ursula. [...] L T Leg Pain, DX with DVT- [facility] ER 10/15/2018. * Family History: F [...] tab(s) orally 2 times a day , Not-Taking Bromfed DM 2-30-10 MG/5ML Syrup 5-10 mL Orally four times a day, prn , Not-Taking Flonase Allergy Relief 50 MCG/ACT Suspension 1 spray in each nostril Nasally Once a day , Not-Taking Albuterol Sulfate HFA 108 (90 Base) MCG/ACT Aerosol Solution 1 puff as needed Inhalation every 4 hrs, prn , Medication List reviewed and reconciled with the patient * Allergies: N .K.D.A. Objective: * Vitals: W t: 147.6, Temp: 97.9, BP: 120/68, HR: 71, Nurse: zeferino, Ht: 65, BMI:24.56. * Examination: G eneral Examination: General Appearance: N AD. HEENT: u nremarkable. Oral cavity: n o lesions, mucosa moist and WNL, no erythema. Neck: s upple, no lymphadenopathy. Chest: n ormal shape and expansion. Heart: R SR. Lungs: c lear to auscultation. Abdomen: b owel sounds present , soft and nontender , no organomegaly or masses , no guarding or rigidity. Neurologic Exam: I ntact, gait normal. Skin: n ormal, no rash. Peripheral pulses: n ormal (2+) bilaterally. Back: n ormal ROM of spine, nontender. Extremities: n o leg edema. Assessment: * Assessment: 1. P aresthesia - R20.2 (Primary) 2 . C hronic embolism and thrombosis of unspecified deep veins of left lower extremity - I82.502 3 . B VA 24.0-24.9, adult - Z68.24 Plan: * Treatment: Value Reference Range V itamin B12 993 393-6056 - pg/mL * Cassi aGnnon 01/27/2025 9: 45:34 AM > see TE ?LAB: P-Comprehensive Metabolic Panel (CMP) (Collection Date & Time - 01/26/2025 12:11 PM)?Normal* Value Reference Range A /G Ratio 2.0 1.1-2.5 - * A lbumin 4.5 3.5-5.3 - g/dL * A lkaline Phosphatase 95 35-121 - IU/L * A LT (SGPT) 12 <5-47 - IU/L * A ST (SGOT) 16 <5-40 - IU/L * B ilirubin, Total 1.0 <0.2-1.2 - mg/dL * B UN 14 8-23 - mg/dL * C alcium 9.6 8.6-10.4 - mg/dL * C hloride 103 97-108 - mmol/L * C O2 26 22-32 - mmol/L * C reatinine 0.72 0.50-1.00 - mg/dL * G lucose 101 H 65-99 - mg/dL * P otassium 4.6 3.5-5.3 - mmol/L * S odium 140 135-145 - mmol/L * P rotein 6.7 6.0-8.3 - g/dL * e GFR by Creatinine 90 >59 - mL/min/1.73m2 * Cassi Gannon 01/27/2025 9: 45:34 AM > see TE ?LAB: P-Magnesium (Collection Date & Time - 01/26/2025 12:11 PM)?Normal* Value Reference Range M agnesium 2.3 1.6-2.4 - mg/dL * Cassi Gannon 01/27/2025 9: 45:34 AM > see TE ?LAB: P-TSH reflex to FT4 (Collection Date & Time - 01/26/2025 12:11 PM)? Normal* Value Reference Range T SH reflex to FT4 3.29 0.43-5.25 - mU/L * Cassi Gannon 01/27/2025 9: 45:34 AM > see TE ?LAB: CBC Venipuncture (in house) (Collection Date & Time - 01/26/2025)* Value Reference Range w bc 6.3 3.5 - 10 * l ymph 20.0 15 - 50 * m id 6.2 2 - 15 * g ran 73.8 35 - 80 * r bc 4.70 3.5 - 5.5 * h gb 14.1 11.5 - 16.5 * h ct 42.5 35 - 55 * m cv 90.4 75 - 100 * m ch 29.9 25 - 35 * m chc 33.1 31 - 38 * p latlet 235 100 - 400 * Evelyn Hahn 01/26/2025 12:4 5:52 PM > Notes: Will get labs first. If labs are all normal, will need an x-ray of the neck and possibly nerve conduction studies on the legs.?? * Procedure Codes: G 2211 Complex e/[place], [address] CBC WITH AUTO DIFF, G8420 BMI<30 AND >=22 CALC & DOCU, G8783 BP SCR PRFRM RCMDD DEFIND SCR INTVL, G8752 MOST RECENT SYSTOLIC BP < 140MM HG, G8754 MOST RECENT DIASTOLIC BP < 90MM HG * Follow Up: v ia phone to report test results * Billing Information: * Visit Code: 40551 Office Visit, Est Pt., Level 4. * Procedure Codes: G2211 Complex e/[place]. [address] CBC WITH AUTO DIFF. G8420 BMI<30 AND >=22 CALC & DOCU. G8783 BP SCR PRFRM RCMDD DEFIND SCR INTVL. G8752 MOST RECENT SYSTOLIC BP < 140MM HG. G8754 MOST RECENT DIASTOLIC BP < 90MM HG. * Electronic signature of JOSE Maher on 02/06/2025 at 09:18 AM EDT Sign off status: Pending * Provider: JOSE Gipson Date: 0 01/26/2025 Generated for Mike david/Vielka/Netteitting on: 0 02/06/2025 09:18 AM EDT History and Physical Notes * HPI (History of Present Illness) Category Sub-Category Detail Notes Category Not es Ankle/Foot Pain Pt sts her feet and toes have a burning at night and tingling sensation as well. Pt sts this has been ongoing in her feet for a long time Elbow/Arm tingling/ numbness Pt is here to day with c/o tingling in the left arm. Pt sts she would like her magnesium level checked today as well. Pt sts the tingling in her [facility]. Pt is unsure if it could be neuopathy or if it is coming from her neck. Examination Category Sub-Category Detail Notes Category Not es General Examination HEENT: unremarkable Heart: RSR Lungs: clear to auscultatio n Abdomen: bowel sounds present , soft and nontender , no organomegaly or masses , no guarding or rigidity Extremities: no leg edema General Appearance: NAD Skin: normal, no rash Neurologic Exam: Intact, gait normal Neck: supple, no lymphaden opathy Oral cavity: no lesions, mucosa m oist and WNL, no erythema Peripheral pulses: normal (2+) bilatera lly Back: normal ROM of spine, nontender Chest: normal shape and exp ansion
--- OUTSIDE RECORDS SUMMARY | 2025-02-06 09:18 | XMS_ITS | Data Portability ---
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 Daughter - she was 45 with Down Syndrome/leukem ia. 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 Daughter - she was 45 with Down Syndrome/leukem ia. 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 Daughter - she was 45 with Down Syndrome/leukem ia. daughter is Tita Mccloud, has grandmichael named Licha and grandson named Ricardo Not available 09/16/2023 15:13:19 02/18/2024 02/18/2024 F/U SCHEDULED WITH JEANNA IN [email or web address] Not available 02/18/2024 16:23:08 05/18/2024 05/18/2024 She raises cattle and [place]. Daughter - she was 45 with Down Syndrome/leukem ia. daughter is Tita Mccloud, has ascencion named Licha and grandson named Ricardo [email or web address] Not available 05/18/2024 15:17:39 Plan of Treatment Reminders Order Date Submit Date Provider Last Modified By Organization Details Last Modified Time Details Appointments None recorded. Lab surgical pathology study [address] [facility], [address] [facility], [place], [address], 11:34:33 Referral None recorded. Procedures None recorded. Surgeries None recorded. Imaging None recorded. Medication Orders metronidazo le 0.75 % topical gel 2023 024 [facility], [address] [place] [address], [facility], [place], [address], 15:17:48 metronidazo le 0.75 % topical gel 2022 023 [facility], [address] [place] [address], [facility], [place], [address], 15:11:10 Patient TargetsNo targets recorded. Patient Instructions Encounter Date Encounter Id Patient Instructions Last Modified By Organization Details Last Modified Time 11/10/2022 [id number] Education/alt/ri s ks/benefits/SE of Dx & Tx discussed. Daily UV protection with broad-spectrum SPF 30+ on exposed areas recommended. Pt encouraged to RTC with any new/changing lesions. Not available 11/10/2022 13:43:42 05/13/2023 [id number] Education/alt/ri s ks/benefits/SE of Dx & Tx discussed. Daily UV protection with broad-spectrum SPF 30+ on exposed areas recommended. Pt encouraged to RTC with any new/changing lesions. Not available 04/20/2023 11:01:45 09/16/2023 [id number] Education/alt/ri s ks/benefits/SE of Dx & Tx discussed. Daily UV protection with broad-spectrum SPF 30+ on exposed areas recommended. Pt encouraged to RTC with any new/changing lesions. Not available 09/16/2023 10:00:08 02/18/2024 [id number] Education/alt/ri s ks/benefits/SE of Dx & Tx discussed. Daily UV protection with broad-spectrum SPF 30+ on exposed areas recommended. Pt encouraged to RTC with any new/changing lesions. [email or web address] Not available 02/18/2024 07:48:25 05/18/2024 [id number] Education/alt/ri s ks/benefits/SE of Dx & Tx discussed. Daily UV protection with broad-spectrum SPF 30+ on exposed areas recommended. Pt encouraged to RTC with any new/changing lesions. Not available 05/17/2024 17:37:44 Reason for Referral None Reported. Results Created Date Observation Date Name Description Value Unit Range Abnormal Flag Note LastModifiedBy Organization Detail LastModifiedTime 05/18/20 24 05/18/2024 SURGI LIT surgical SEE BELOW normal Depar tment of Patho logy Surgi lit Patho logy Repor t NAME: ÁNGELA BUSCH PATH. :[id number] Copy to: Diagn osis: Sunday pinou s upper back: Liche noid kerat osis. SOURC E OF SPECI MEN: SKIN BIOPS Y, SUNDAY PINOU S UPPER BACK CLINI LIT INFOR MATIO N: D48.5 R/O BCC Gross Descr iptio n: Recei lucita in forma omi label ed with the patie nt's name and desig nated para spino us upper back is a shave biops y of skin (0.8 x 0.7 x 0.1 cm). The epide rmal surfa ce is pale- merritt and merritt-b rown, varie gated , and mottl ed. The cheri n is inked blue. The speci men is trise cted and entir hima submi tted in one casse tte label ed A1. SB 05/18 07:16 PM Micro scopi c Descr iptio n: A micro scopi c exami natio n has been perfo rmed and the resul t(s) are as noted above . No malig justin is seen. MEHRAN GALINDO M.D. [place] [facility] Date: 05/19 11:34 Page 1 of 1 Not Available [facility] [address] [place] [address], [place], [address], 05/19/2024 11:34:33 Result Notes None recorded. Problems Name Problem SNOMED Code Status Onset Date Resolution Date Notes Provider Name and Address Organization Details Recorded Time History of deep vein thrombosis 250109076 Active 021 JEANNA JOLLY PA-C [address] [place], [address] 18:44:02 Problem Notes None recorded. Procedures Surgical History Date Name Laterality Status Provider Name and Address Organization Details Recorded Time 05/18/20 24 Biopsy Skin Lesion; Tangential completed [facility] 05/18/2024 14:36:50 05/18/20 24 Destruction Premalignant Lesion(s) completed [facility] 05/18/2024 14:29:54 02/18/20 24 Destruction Premalignant Lesion(s) completed Paola Gordillo [facility] 02/18/2024 15:18:39 09/16/19 24 Destruction Premalignant Lesion(s) completed [facility] 09/16/2023 15:04:08 05/13/20 23 Destruction Premalignant Lesion(s) completed Siri Michele [facility] 05/13/2023 15:29:46 11/11/19 23 Destruction Premalignant Lesion(s) completed [facility] 11/10/2022 15:46:51 11/11/19 23 Destruction BN Lesions completed [facility] 11/10/2022 15:47:59 05/12/20 22 Destruction [facility]alignant Lesion(s) [facility] 16:08:54 05/12/20 22 Destruction BN Lesions completed Cass [facility] 05/12/2022 16:09:07 03/26/20 22 Destruction [facility](s[facility] 12:01:27 12/27/19 22 Destruction Premalignant Lesion(s) completed Paola Roberts [facility] 12/26/2021 15:17:12 12/27/19 22 Destruction BN Lesions completed Paola Roberts [facility] 12/26/2021 15:16:52 05/19/20 21 Destruction MN Lesion; trunk, arm, leg completed Yuan Margarito [facility] 01/16/2021 14:42:58 01/01/20 21 Biopsy Skin Lesion; Tangential completed Nyla Escobar [facility] 12/31/2020 16:44:35 05/03/20 20 Destruction Premalignant Lesion(s) completed Clare Dejon [facility] 05/03/2020 14:29:53 05/03/20 20 Destruction BN Lesions completed Clare Dejon [facility] 05/03/2020 14:26:06 Imaging Results None recorded. Procedure Notes None recorded. Medical Equipment None Reported. Allergies No known drug allergies Medications Name Sig Start Date Stop Date Status Note LastModified by Organization Details LastModified Time fluorouraci l 5 % topical cream APPLY A SUFFICIEN T AMOUNT TO COVER THE LESIONS IN THE AFFECTED AREA(S) BY TOPICAL ROUTE 2 TIMES PER DAY FOR 21 DAYS 12/26 completed Not Available Not Available Not Available metronidazo le 0.75 % topical gel APPLY A THIN LAYER TO THE AFFECTED AREA(S) BY TOPICAL ROUTE 2 TIMES PER DAY IN THE MORNING AND EVENING 2023 active Not Available Not Available Not Avai lable Eliquis active Not Available Not Avail able Not Available Vitals None Recorded Social History None recorded. Functional Status None recorded. Mental Status None recorded. Family History Relationship Description Onset Age of this Age Resolved Age Notes LastModified by Organization Details LastModified Time Father No current problems or disability [email or web address] Not available 05/03 14:05:03 Mother No current problems or disability [email or web address] Not available 05/03 14:05:03 Medical History No medical history recorded. Gynecological HistoryNo gynecological history recorded. Obstetrics History GPAL:G 0 P 0 0 0 0 Past Encounters Encounter ID Performer Location Encounter Start Date Encounter Closed Date Diagnosis/Indication Diagnosis SNOMED-CT Code Diagnosis ICD10 Code Diagnosis Note [id number] JEANNA JOLLY PA-C [facility] [address] [place] [address] 05/03/2020 14:01:17 05/03/2020 15:00:55 Solar lentiginosis 429602661 L81.4 benign reassuranc e Raised soy orrheic keratosis 8408875244 04830 L82.1 benign reassuranc e Hemangioma 441065374 D18 .00 benign reassuranc e Multiple b enign melanocytic nevi 301826925 D22.9 benign reassuranc e Actinic keratosis [address] x 4 pt tolerated well after care instructio ns were given Inflamed s eborrheic keratosis 719715667 L82.0 LN x 2 pt tolerated well after care instructio ns were given History of malignant neoplasm of skin excluding melanoma 770571140 Z85.828 unknown type treated by [facility]agon [facility]; will request records Left distal joseph and right anterior thigh no recurrence [id number] JEANNA JOLLY PA-C [facility] [address] [place] [address] 09/11/2020 14:53:04 09/11/2020 15:44:28 History of deep vein thrombosis 861825152 Z86.718 Patient had DVT in L calf in October 2018 She is on Eliquis Varicose v eins of lower extremity 42017821 I83.893 Discussed tx options; patient declined referral to vascular surgery L lower leg has no tenderness to palpitatio n, no warmth, redness, or swelling to suggest acute DVT so I think her pain is simply related to the varicositi es. She will continue with compressio n stockings Patient declined referral to vascular surgery If pain acutely worsens recommend f/up with PCP to order U/S Actinic keratosis 007 L57.0 Thin lesions diffusely on face Recommend 5U cream or PDT - se/r/b discussed Will start 5FU cream BID x21 days, advised do not use on skin within the orbital rim Educationa l info paper given with what to expect/SE/ benefits Start Cetaphil gentle cleanser and may use Curel fragrance- free moisturize r which she has at home, has been using Dial soap on face - cautioned too drying Continue Lancome moisturize r with sunscreen qAM Wear broad-brim med hat to protect from direct sun exposure while using medication Recheck 6 weeks History of squamous cell carcinoma of skin 645080122 Z85.828 L distal joseph, R anterior thigh - no EOR and doing well Treated by [facility]agon [facility] Oct 2018 [id number] JEANNA JOLLY PA-C [facility] [address] [place] [address] 10/24/2020 15:07:09 10/24/2020 15:28:46 Patient advised about exposure to the sun 233024581 Z71.89 Counseled on sun protective clothing and daily UV protection with otc broad-spec trum SPF 30+ on exposed areas. Regular self-skin exams recommende d. Pt encouraged to RTC with any new/changi ng lesions. History of actinic keratosis 1026397963 104 Z87.2 s/p Efudex x 21 days with good reaction Healing smooth pink skin today Continue SPF qam Raised soy orrheic keratosis 0007661470 53566 L82.1 Benign reassuranc e [id number] JEANNA JOLLY PA-C [facility] [address] [place] [address] 12/31/2020 15:32:19 01/02/2021 09:54:01 Neoplasm of uncertain behavior of skin 10645169 D48.5 R distal medial lower leg - r/o SCC Shave bx taken; see procedure note Patient tolerated well, after care given Patient would prefer excision if the lesion requires further tx [id number] JEANNA JOLLY PA-C [facility] [address] [place] [address] 01/16/2021 13:51:48 01/16/2021 16:12:22 Squamous cell carcinoma of skin of lower extremity 602921723 C44.729 Left distal medial lower leg EDC x 3 ; see procedure note Patient tolerated well After care given Raised soy orrheic keratosis 1137208458 87423 L82.1 Benign reassuranc e [id number] JEANNA JOLLY PA-C [facility] [address] [place] [address] 05/08/2021 13:54:28 05/08/2021 14:47:59 Solar lentiginosis 731878100 L81.4 benign reassuranc e Raised soy orrheic keratosis 9480174111 68006 L82.1 benign reassuranc e Hemangioma 797045437 D18 .00 benign reassuranc e Multiple b enign melanocytic nevi 843971222 D22.9 benign reassuranc e History of squamous cell carcinoma in situ 6776121511 9105 Z86.008 left distal medial lower leg s/p EDC - no EOR History of squamous cell carcinoma of skin 118107284 Z85.828 left distal joseph and right anterior thigh s/p EDC - no EOR treated by [facility] Malagon [facility] Patient ad vised about exposure to the sun Z Counseled on sun protective clothing and daily UV protection with otc broad-spec trum SPF 30+ on exposed areas. Regular self-skin exams recommende d. Pt encouraged to RTC with any new/changi ng lesions. [id number] YUAN TORRES PA-C [facility] [address] [place] [address] 12/26/2021 15:04:17 12/26/2021 15:18:01 Inflamed seborrheic keratosis 295585595 L82.[address] per patients request: R TEMPORAL AREA X1pt tolerated welladvise d pt what to expect with freezingF/ U IF DOES NOT RESOLVE Actinic keratosis 007 L57.0 Education then treated with LN; R LATERAL CHEEK X2, L TEMPORAL AREA X1, L CHEEK X2pt tolerated welladvise d pt what to expect with freezingRE COMMENDED SUN PROTECTIVE CLOTHING/H ATS AND OTC SPF 30+ EQUATE SPORT OR BLUE LIZARD SUNSCREEN DAILYF/U SCHEDULED FOR ANNUAL WITH JEANNA OR SOONER IF DO NOT RESOLVE [id number] JEANNA JOLLY PA-C [facility] [address] [place] [address] 03/26/2022 11:28:22 03/26/2022 12:14:53 Patient advised about exposure to the sun Z.89 Counseled on sun protective clothing/h ats and daily UV protection with otc broad-spec trum SPF 30+ on exposed areas. Regular self-skin exams recommende d. Pt encouraged to RTC with any new/changi ng lesions. Actinic keratosis 007 L57.0 Scale consistent with AK on R lower cheryl lip? Purple raised papule could have been a venous martinez that involuted or from trauma she thinks she could have hit her lip in the barn LN x 1see procedure notept tolerated wellafter care instructio ns were [facility] in May at her FSE [id number] JEANNA JOLLY PA-C [facility] [address] [place] [address] 05/12/2022 15:24:57 05/12/2022 16:13:26 Solar lentiginosis 031259069 L81.4 Benign reassuranc e Raised soy orrheic keratosis 2625150785 49398 L82.1 Benign reassuranc e Hemangioma 966075643 D18 .00 Benign reassuranc e Multiple b enign melanocytic nevi 015151300 D22.9 Benign reassuranc e History of squamous cell carcinoma of skin 034271587 Z85.828 L distal joseph and R anterior thigh s/p EDC - no EOR Treated by [facility] Malagon [facility] History of squamous cell carcinoma in situ 6646265243 9105 Z86.008 L distal medial lower leg s/p EDC - no EOR Patient ad vised about exposure to the sun 428813645 Z71.89 Counseled on sun protective clothing/h ats and daily UV protection with otc broad-spec trum SPF 30+ on exposed areas. Regular self-skin exams recommende d. Pt encouraged to RTC with any new/changi ng lesions. Inflamed s eborrheic keratosis 597883466 L82.0 Benign reassuranc eIrritated due to locations & patient pickingTre ated with LN x 2See procedure notePatien t tolerated well Actinic keratosis 085627 007 L57.0 Educated patient on pre-malign ant dxTreated with LN x 3See procedure notePatien t tolerated well [id number] JEANNA JOLLY PA-C [facility] [address] [place] [address] 11/10/2022 15:08:55 11/10/2022 15:52:35 History of squamous cell carcinoma of skin 356209323 Z85.828 L distal joseph & R anterior thigh s/p EDC - no EOR Treated by Dr[facility] Malagon [facility] History of squamous cell carcinoma in situ 9660278124 9105 Z86.008 L distal medial lower leg s/p EDC - no EOR Solar lentiginosis 76991 2006 L81.4 Benign reassuranc e Raised soy orrheic keratosis 0643844626 86158 L82.1 Benign reassuranc e Hemangioma 309823195 D18 .00 Benign reassuranc e Multiple b enign melanocytic nevi 312730372 D22.9 Benign reassuranc e Actinic keratosis 550478 007 L57.0 Educated patient on pre-malign ant dxTreated with LN x 5See procedure notePatien t tolerated wellAfter care instructio ns were given Patient ad vised about exposure to the sun 600308407 Z71.89 Counseled on sun protective clothing/h ats and daily UV protection with otc broad-spec trum SPF 30+ on exposed areas. Regular self-skin exams recommende d. Pt encouraged to RTC with any new/changi ng lesions. Inflamed s eborrheic keratosis 609927578 L82.0 Benign reassuranc eTreated with LN x 7See procedure notePatien t tolerated well Rosacea, e rythematous telangiectatic type 151559 L71.8 Chronic, tommie-sta rt metronidaz ole gel, apply to face twice daily as directed [id number] JEANNA JOLLY PA-C [facility] [address] [place] [address] 05/13/2023 14:55:38 05/13/2023 15:38:53 History of squamous cell carcinoma of skin 866720070 Z85.828 L distal joseph & R anterior thigh s/p EDC - no EOR, will continue to monitor Treated by Dr[facility] Malagon [facility] History of squamous cell carcinoma in situ 8272933547 9105 Z86.008 L distal medial lower leg s/p EDC - no EOR, will continue to monitor Solar lentiginosis 31169 2006 L81.4 Benign reassuranc e Raised soy orrheic keratosis 3257441898 49623 L82.1 Benign reassuranc e Hemangioma 291685423 D18 .00 Benign reassuranc e Multiple b enign melanocytic nevi 462848930 D22.9 Benign reassuranc e Actinic keratosis 637793 007 L57.0 Pre-malign ant diagnosis discussedL N [id number] tolerated wellAfter care instructio ns were given Discussed options for L jaw line -- DDX either HAK or early SCC. Gave option to treat with LN and see if resolves and if still present after 1 month rtc for biopsy or biopsy lesion today. She preferred the first option. She voiced understand ing of risks. Rosacea, e rythematous telangiectatic type 044402 L71.8 Chronic, mildContin ue metronidaz ole gel BID as directed Patient ad vised about exposure to the sun . Counseled on sun protective clothing/h ats and daily UV protection with otc broad-spec trum SPF 30+ on exposed areas. Regular self-skin exams recommende d. Pt encouraged to RTC with any new/changi ng lesions. [id number] JEANNA JOLLY PA-C [facility] [address] [place] [address] 09/16/2023 14:33:21 09/16/2023 15:30:02 History of squamous cell carcinoma of skin 412741977 Z85.828 L distal joseph & R anterior thigh s/p EDC - no EOR, will continue to monitor Treated by Dr[facility] Malagon [facility] History of squamous cell carcinoma in situ 4985790901 9105 Z86.008 L distal medial lower leg s/p EDC - no EOR, will continue to monitor Solar lentiginosis 73854 2006 L81.4 Benign reassuranc e Raised soy orrheic keratosis 1021915305 87138 L82.1 Benign reassuranc e Hemangioma 324777142 D18 .00 Benign reassuranc e Multiple b enign melanocytic nevi 814114481 D22.9 Benign reassuranc e Actinic keratosis 007 L57.0 Pre-malign ant diagnosis discussedR ecommended cryosurger yLN x 7Patient tolerated wellCryosu rgery handout providedSe e procedure note Rosacea, e rythematous telangiectatic type 263789 L71.8 Chronic, mildContin ue metronidaz ole gel BID as directed. Declines need for refills today Patient ad vised about exposure to the sun 89 Counseled on sun protective clothing/h ats and daily UV protection with otc broad-spec trum SPF 30+ on exposed areas. Regular self-skin exams recommende d. Pt encouraged to RTC with any new/changi ng lesions. [id number] YUAN TORRES PA-C [facility] [address] [place] [address] 02/18/2024 14:46:45 02/18/2024 15:27:01 Actinic keratosis 722016393 L57.0 CRYO X 2PT ADVISED WHAT TO EXPECT FROM FREEZINGRE COMMENDED SUN PROTECTIVE CLOTHING/H ATS AND OTC SPF 30+ EQUATE SPORT OR BLUE LIZARD SUNSCREEN DAILYF/U IF DO NOT RESOLVE Seborrheic dermatitis of scalp 044586512 L21.0 MILD FLARINGDIS CUSSED KETOCONAZO LE 2% SHAMPOO - PT DECLINED RX Diffuse lo ss of scalp hair 608258133 L65.9 DIFFUSE SCALP HAIR LOSS X 3 MONTHSDISC USSED VARIOUS REASONS FOR HAIR LOSS INCLUDING TELOGEN EFFLUVIUM AND ANDROGENIC ALOPECIA. PT STATES EXTREME STRESS FROM DOWN SYNDROME DAUGHTER'S 2 YEARS AGO BUT CANNOT THINK OF ANY OTHER STRESSORS, ILLNESSES, ETC SINCE THEN. DENIES ANY CHANGES IN HEALTH.NGUYỄN R LOSS HANDOUT PROVIDED AND REVIEWEDDI SCUSSED BIOTIN, NUTRAFOL, ROGAINE FOAM, FINASTERID E AND MINOXIDIL R/A/B IN DETAIL WITH PT; SHE WOULD LIKE TO THINK ABOUT OPTIONS FOR NOWCOULD ALSO ORDER SOME LABS IF SHE WOULD LIKESEEN SHAMPOO SAMPLES PROVIDED TO TRYF/U IF WORSENING [id number] JEANNA JOLLY PA-C [facility] [place] [address] [place] [address] 05/18/2024 14:07:09 05/18/2024 14:45:06 History of squamous cell carcinoma of skin 113990815 Z85.828 L distal joseph & R anterior thigh s/p EDC - no EOR, will continue to monitor Treated by Dr[facility] Malagon at [facility] History of squamous cell carcinoma in situ 7807966758 9105 Z86.008 L distal medial lower leg s/p EDC - no EOR, will continue to monitor Solar lentiginosis 98923 2006 L81.4 Benign reassuranc e Raised soy orrheic keratosis 5941763566 71800 L82.1 Benign reassuranc e Hemangioma 349042586 D18 .00 Benign reassuranc e Multiple b enign melanocytic nevi 348997585 D22.9 Benign reassuranc e Actinic keratosis 007 L57.0 Pre-malign ant diagnosis discussedR ecommended cryosurger yLN x 1Patient tolerated wellCryosu rgery handout providedSe e procedure note Rosacea, e rythematous telangiectatic type 392234 L71.8 Chronic, mildContin ue metronidaz ole gel BID as directed.R ecommended Afrin nasal spray with oxymetazol ine mixed in moisturize r. Add 0.05 oz Afrin to 3 oz of Cerave PM facial moisturizi ng lotion, and shake. Apply it in the morning or before an eventDiscu ssed laser, she is not interested Patient ad vised about exposure to the sun 667851757 Z71.89 Counseled on sun protective clothing/h ats and daily UV protection with otc broad-spec trum SPF 30+ on exposed areas. Regular self-skin exams recommende d. Pt encouraged to RTC with any new/changi ng lesions. Neoplasm o f uncertain behavior of skin 83426058 D48.5 Paraspinou s upper back - r/o pigmented BCC shave bx taken todaysee procedure notewound care was givenconse nt was signedf/up per path Health Concerns Section Related Observation LastModified by Organization Detai ls LastModified Time None Recorded Concern Status LastModified by Organization Details LastModified Time None Recorded Advance Directives Directive None Recorded Payers Insurance Date Sequence Insurance Name Policy Number Policy Clayton Covered Member ID Clayton Member ID Guarantor Name 05/15/2024 1 [employer] (MEDICARE REPLACEMENT/ ADVANTAGE - PPO) Jenny W Box [id number] Jenny W Box Notes Date Note Type Note Provider Name and Address Organization Details Recorded Time 11/10/2022 text/html Established Linda ent Patient presents to the clinic today for her 6 month FSE. Patient has a history of SCCs, SCCIS and AKs. Patient states she has places on her face, center of her nose, L side of zoroastrianism, and lastly a place in her hair line. She only wants her waist up to be looked at today. There is nothing on her legs of concern. She would like a refill of metronidazole gel for rosacea. Denies any other new, changing, or bleeding lesions, or other rashes, feels well , and has no family history of melanoma. JEANNA JOLLY PA-C [address] [place], [address], [facility] 11/10/2022 17:45:07 05/13/2023 text/html Established Linda ent Patient presents to the clinic today for her 6 month skin check. History of SCC, SCCIS and AKs. Currently uses metronidazole gel for her rosacea. Patient states she has a raised scaly lesion on her left jaw line that has been there for 4 months. Denies pain/bleeding. She also has a rough lesion on her R zoroastrianism. Last FSE was on 05-12-22, she declined FSE today, agreed to waist up exam. Denies any other new, changing, or bleeding lesions, or other rashes, feels well , and has no family history of melanoma. JEANNA JOLLY PA-C [address] [place], [address], [facility] 05/13/2023 17:08:08 09/16/2023 text/html Established Patientaccompanied by double cousin, Neeta Patient presents to clinic today for waist up skin exam. History of SCC, SCCIS, and AKs. Patient states she has several rough lesions on her face. In regards to rosacea, continues to treat with metronidazole gel. She is only using when she only has redness. Denies any other new, changing, or bleeding lesions, or other rashes, feels well , and has no family history of melanoma. JEANNA JOLYL PA-C [address] [place], [address], [facility] 09/16/2023 15:13:48 02/18/2024 text/html ESTABLISHED PT O F ANTHONY MAYO OF SCC, SCCIS, AK'S 1) PT C/O HAIR LOSS ON SCALP X 3 MONTHS (-)ITCH/BLEED/PAIN. NO TX 2) PER PT WOULD LIKE TO FREEZE A FEW SPOTS TODAY PT IS TAKING ELIQUISno issues with scarring or healing *[employer]RIAN, [address], PREVIOUSLY HAD SHEEPS Denies any other new, changing, or bleeding lesions, or other rashes. Patient feels well today and in a good mood. No family history of melanoma. YUAN TORRES PA-C [address] [place], [address], [facility] 02/18/2024 16:33:49 05/18/2024 text/html Established Linda ent Patient presents to clinic today for annual up skin exam. History of SCC, SCCIS, and AKs. In regards to rosacea, continues to treat with metronidazole gel. She is only using when she only has redness. Nose still gets red. Metronidazole helps some but never makes the red go away. Denies any other new, changing, or bleeding lesions, or other rashes, feels well , and has no family history of melanoma. JEANNA JOLLY PA-C [address] [place], [address], [facility] 05/18/2024 15:18:03 OBGyn Episode No OBEpisode recorded.
--- OUTSIDE RECORDS SUMMARY | 2025-02-06 09:18 | XMS_ITS | Clinical Summary ---
Author Organization [facility] Address [address] [place] [address] Care Team Providers Care Penology Professor Name Role Phone Edwin Bingham MD Primary Care Provider [phone] Allergies Active Allergy Reactions Criticality Noted Date Comments Wound Dressing Adhesive Rash Low 07/17/2021 Medications Eliquis 2.5 MG tablet Take 1 tablet (2.5 mg) by mouth 2 (two) times a day. 0 Active Multiple Vitamin (multivitamin) capsule Take 1 capsule by mouth 1 (one) time each day. Active COLLAGEN PO Take by mouth. chewable Active oxyCODONE (Roxicodone) 5 MG immediate release tablet Take 1 tablet (5 mg) by mouth every 4 (four) hours if needed for severe pain. 50 tablet 4 Active Additional Information Patient not taking.Reported on 05/16/2024 gabapentin (Neurontin) 100 MG capsule Take 1 capsule (100 mg) by mouth every night. 30 capsule 4 Active Additional Information Patient not taking.Reported on 05/16/2024 acetaminophen (Tylenol Extra Strength) 500 MG tablet Take 2 tablets (1,000 mg) by mouth every 8 (eight) hours. 100 tablet 4 Active Additional Information Patient not taking.Reported on 05/16/2024 traMADol (Ultram) 50 MG tablet Take 1 tablet (50 mg) by mouth every 4 (four) hours if needed for moderate pain. Take 1 or 2 tablets every 4-6 hours as needed for pain 60 tablet 4 Active Additional Information Patient not taking.Reported on 05/16/2024 Active Problems Problem Noted Date Diagnosed Date Primary osteoarthritis of left knee 03/31/2024 Chronic pain of left knee 10/07/2021 DVT (deep venous thrombosis) 07/11/2021 Good tolerance for activity 05/10/2021 History of deep vein thrombosis 09/11/2020 Vaginal atrophy 07/18/2020 Degenerative tear of medial meniscus 02/19/2015 Primary osteoarthritis of one knee, left 015 Resolved Problems Problem Noted Date Diagnosed Date Resolved Date Cervical stump prolapse 07/16/202208/31 POP-Q stage 3 cystocele 07/18/202008/31 Family History Medical History Relation Name Comments Cardiac disorder Father Conversions - Other Father Healthy adult Hypertension Father Conversions - Other Mother Healthy adult Anesthesia problems Neg Hx Malig Hyperthermia Neg Hx Relation Name Status Comments Father Mother Social History Tobacco Use Types Packs/Day Years Used Date Smoking Tobacco: Never Smokeless Tobacco: Never Alcohol Use Standard Drinks/Week Comments Yes 0 (1 standard drink = 0.6 oz pur e alcohol) rare. PHQ-2 Answer Date Recorded Patient Health Questionnaire-2 Score 0 05/16/2024 CAGE ASSESSMENT Answer Date Recorded Cage unable to access Not on file 03/31/2024 Cage max number of drinks Not on file 2023 Cage Beverages a week Not on file 03/31/2024 Have you ever felt you should CUT down on your d rinking? 0 03/31/2024 Have you been ANNOYED by people criticizing your drinking? 0 03/31/2024 Have you felt GUILTY about your drinking? 0 03/31/2024 Have you had a drink first t roslyn in the morning (EYE-TEACHING ASSOCIATE) to steady your nerves or to get rid of a hangover? 0 03/31/2024 CAGE Questionnaire Score 0 024 Comments No Sex and Gender Information Value Date Recorded Sex Assigned at Not on file Legal Sex Female 7:02 PM EDT Gender Identity Not on file Sexual Orientation Not on file Last Filed Vital Signs Vital Sign Reading Time Taken Comments Blood Pressure 112/69 05/16/2024 9:44 AM EDT Pulse 75 05/16/2024 9:44 AM EDT Temperature 36.7 C (98.1 F) 04/01/2024 12:32 PM EDT Respiratory Rate 15 04/15/2024 9:36 AM EDT Oxygen Saturation 98% 05/16/2024 9:44 AM EDT Inhaled Oxygen Concentration - - Weight 66.5 kg (146 lb 9.7 oz) 05/16/2024 9:44 A M EDT Height 162.6 cm (5' 4 ) 05/16/2024 9:44 AM EDT Body Mass Index 25.16 05/16/2024 9:44 AM EDT Plan of Treatment Health Maintenance Due Date Last Done Comments [facility]-Bone Density Scan 1954 [facility]-Hepatitis C Screening 1954 [facility]-Medicare Annual Wellness (AWV) 1954 [facility]-Infant/Child/Adol SDOH Screenings 1954 [facility]- SDOH Screenings 1972 [facility]-Adult SDOH Screenings 1972 [facility]-DTaP,Tdap,and Td Vaccines (1 - Tdap) 1973 CT Colonography 1999 Colonoscopy 1999 FIT-DNA 1999 FIT 1999 FOBT 1999 Sigmoidoscopy 1999 [facility]-Colorectal Cancer Screening 1999 [facility]-Breast Cancer Screening 2004 [facility]Y-Pneumococcal Vaccine: 50+ Years (1 of 1 - PCV) 2004 [facility]Y-Zoster Vaccines (1 of 2) 2004 YIS-NFDYY-96 Vaccine ( - season) 2024 06/24/2021, 10/24/2020, 09/26/2020 [facility]-Influenza Vaccine (Season Ended) 2025 07/07/2022, 07/21/2020, 07/06/2018, Additional history exists [facility]-Depression Screening 05/16/2025 05/16/2024 [facility]-RSV Vaccine: 60+ Years or (1 - 1-dose 75+ series) 2029 [facility]-Obesity Intervention Completed 024, 04/15/2024, 01/11/2024, Additional history exists HPV Vaccines Aged Out No longer eligi ble based on patient's age to complete this topic [facility]-HIB Vaccines Aged Out No longer e ligible based on patient's age to complete this topic [facility]Y-Hepatitis A Vaccines Aged Out No longer eligible based on patient's age to complete this topic UKY-IPV Vaccines Aged Out No longer e ligible based on patient's age to complete this topic UKY-Rotavirus Vaccines Aged Out No lo nger eligible based on patient's age to complete this topic Goals Goal Patient Goal Type Associated Problems Recent Progress Patient-Stated? Author Autogenera jaelyn Goal Care Plan Autogenerated Problem No Freddie Smith MD Medical Devices Implanted Type Area Reference Investigator Device Identifier Shelf Expiration Date Model / Serial / Lot Lynx Blue Sling System - [id number] Implanted:Qty: 1 on 07/11/2021 by Celso Alvarado MD at [facility] Mesh N/A: Vagina [employer]-[id number] 05/14/2024 [id number] / / [id number] Kit Anchorsure - S184 - [id number] Implanted:Qty: 1 on 07/11/2021 by Celso Alvarado MD at [facility] N/A: Pelvis [employer]-[id number] 04/26/2023 A-SURE / 184 / [id number] Cement Palacos - [id number] Implanted:Qty: 2 on 03/31/2024 by Chirag Patrick MD at [facility] Left: Knee [employer]ae[employer] Inc-[id number] 06/30/2028 [id number] / / [id number] Chg Femoral Legion Ps Nrrw Oxin Sz4 Lt - [id number] Implanted:Qty: 1 on 03/31/2024 by Chirag Patrick MD at [facility] Left: Knee Madrigal [employer] Nephew [employer]-[id number] 05/11/2033 [id number] / / [id number] Chg Tibial Gns Ii Cmt Size 3 L - [id number] Implanted:Qty: 1 on 03/31/2024 by Chirag Patrick MD at [facility] Left: Knee [employer]-[id number] 09/27/2033 [id number] / / [id number] Chg Patella Gii Oval Resurfaci - [id number] Implanted:Qty: 1 on 03/31/2024 by Chirag Patrick MD at [facility] Left: Knee [employer]-[id number] 12/23/2033 [id number] / / [id number] Chg Insert Lgn Ps Hg Fx Xlpe S - [id number] Implanted:Qty: 1 on 03/31/2024 by Chirag Patrick MD at [facility] Left: Knee [employer]-[id number] 11/09/2032 [id number] / / [id number] Additional Health Concerns Active Problems Noted Date Diagnosed Date Autogenerated Problem 12/07/2024 Insurance MEGHA [place] MUSE [id number] [employer] MEDICARE Advance Directives * Full Code (Latest Code Status on File) Date Activated Date Inactivated Comments 03/31/2024 11:58 AM 04/01/2024 4:24 PM Question Answer Comments Patient has decision-making capacity? Yes * Full Code Date Activated Date Inactivated Comments 07/28/2022 12:05 PM 07/29/2022 2:37 PM Question Answer Comments Patient has decision-making capacity? Yes Care Teams Penology Professor Relationship Specialty Start Date End Date Edwin Bingham MD [address] [place] [address] [place] [address] PCP - General 01/11/21
--- OUTSIDE RECORDS SUMMARY | 2025-02-06 09:19 | XMS_ITS | Patient Health Record ---
[facility] Address [address] [facility] [address] [place] [id number] Care Team Providers Care Supervisor Inspection Room Name Role Phone Ibeth Bingham Primary Care Provider Cassi Gannon Unavailable [phone] Allergies No Known Allergies Results Component Value [...] - 38 plat 206 100 - 400 Influenza Screen (in house) Reviewed date:07/08/2024 04:55:32 [...] Interpretation:neg Performing Lab: Notes/Report: neg Result: neg Mammogram Reviewed date:01/16/2025 10:58:34 AM Interpretation:Negative Performing Lab: Notes/Report: Negative result Negative P-TSH reflex to FT4 Reviewed date:01/27/2025 09:45:41 AM Interpretation:Normal Performing Lab: Notes/Report: Test performed by [facility] [address] , [address], [place] [address] Fernando Jacobs MD, Social Media Specialist CLIA: [id number] TSH reflex to FT4 3.29 0.43-5.25 mU/L P-Magnesium Reviewed date:01/27/2025 09:45:41 AM Interpretation:Normal Performing Lab: Notes/Report: [facility] , [address], [place] [address] Fernando Jacobs MD, Social Media Specialist CLIA: [id number] Magnesium 2.3 1.6-2.4 mg/dL P-Comprehensive Metabolic Pa kaitlin (CMP) Reviewed date:01/27/2025 09:45:41 AM Interpretation:Normal Performing Lab: Notes/Report: Test performed by [facility] [address] , [address], [place] [address] Fernando Jacobs MD, Social Media Specialist CLIA: [id number] Sodium 140 135-145 mmol/L Potassium 4.6 3.5-5.3 [...] 1.0 <0.2-1.2 mg/dL A/G Ratio 2.0 1.1-2.5 P-Vitamin B12 Reviewed date:01/27/2025 09:45:41 AM Interpretation:Normal Performing Lab: Notes/Report: Test performed by [facility], [address] , [address], [place] [address] Fernando Jacobs MD, Social Media Specialist CLIA: [id number] Vitamin B12 [phone] pg/mL CBC Venipuncture (in house) Reviewed date:01/27/2025 12:36:21 [...] - 38 platlet 235 100 - 400 CBC Fingerstick (in house) Reviewed date:06/16/2024 11:33:39 AM Interpretation: Performing Lab: Notes/Report: wbc 11.0 3.5 - 10 lym 12.7 15 - 50 mid 4.2 2 - 15 gran 83.1 35 - 80 rbc 4.59 3.5 - 5.5 hgb 13.6 11.5 - 16.5 hct 42.2 35 - 55 mcv 91.9 75 - 100 mch 29.8 25 - 35 mchc 32.4 31 - 38 plat 191 100 - 400 CBC Venipuncture (in house) Reviewed date:03/04/2024 04:20:57 PM Interpretation: Performing Lab: Notes/Report: wbc 6.6 3.5 - 10 lymph 17.1% 15 - 50 mid 5.3% 2 - 15 gran 77.6% 35 - 80 rbc 4.53 3.5 - 5.5 hgb 13.6 11.5 - 16.5 hct 41.7 35 - 55 mcv 92.1 75 - 100 mch 30.2 25 - 35 mchc 32.7 31 - 38 platlet 236 100 - 400 P-Comprehensive Metabolic Pa kaitlin (CMP) Reviewed date:03/09/2024 09:15:31 AM Interpretation:Normal Performing Lab: Notes/Report: Test performed by [facility] [address] [place] [address] , [address], [place] [address] Fernando Jacobs MD, Social Media Specialist CLIA: [id number] Sodium 141 135-145 mmol/L Potassium 4.5 3.5-5.3 mmol/L Chloride 105 97-108 mmol/L CO2 26 22-32 mmol/L Glucose 96 65-99 mg/dL BUN 14 8-23 mg/dL Creatinine 0.84 0.50-1.00 mg/dL Calcium 9.6 8.6-10.4 mg/dL eGFR by Creatinine 75 >59 mL/min/1.73m2 Protein 6.5 6.0-8.3 g/dL Albumin 4.5 3.5-5.3 g/dL Alkaline Phosphatase 91 35-121 IU/L ALT (SGPT) 13 <5-47 IU/L AST (SGOT) 19 <5-40 IU/L Bilirubin, Total 1.0 <0.2-1.2 mg/dL A/G Ratio 2.3 1.1-2.5 mg/dL P-Lipid Panel Reviewed date:03/09/2024 09:15:31 AM Interpretation:Normal Performing Lab: Notes/Report: Test performed by [facility], [address] , [address], [place] [address] Fernando Jacobs MD, Social Media Specialist CLIA: [id number] Cholesterol 179 <200 mg/dL Triglycerides 90 <150 mg/dL HDL Cholesterol 68 >39 mg/dL Cholesterol / HDL Ratio 2.63 0.00-4.44 Ratio Non-HDL Cholesterol 111 <130 mg/dL LDL Cholesterol (Calculation) 93 <130 mg/dL LDL Cholesterol Levels* Less than 100 mg/dL Optimal 100 to 129 mg/dL Near Optimal/ Above Optimal 130 to 159 mg/dL Borderline High 160 to 189 mg/dL High 190 mg/dL and above Very High * Categories as recommended by the 2004 ATPIII guidelines LDL/HDL Ratio 1.4 <3.3 Ratio LDL Cholesterol Patient History Test Date: 03/04/2024 LDL Results: 93 Units: mg/dL % Change: - P-TSH reflex to FT4 Reviewed date:03/09/2024 09:15:31 AM Interpretation:Normal Performing Lab: Notes/Report: Test performed by [facility] [address] , [address], [place] [address] Fernando Jacobs MD, Social Media Specialist CLIA: [id number] TSH reflex to FT4 3.61 0.43-5.25 mU/L EKG Reviewed date:03/17/2024 02:20:37 PM Interpretation: Performing Lab: Notes/Report: EKG Reviewed date:03/17/2024 02:20:37 PM Interpretation: Performing Lab: Notes/Report: EKG Reviewed date:03/17/2024 02:20:37 PM Interpretation: Performing Lab: Notes/Report: CXR Reviewed date:03/17/2024 02:20:28 PM Interpretation:Negative Performing Lab: Notes/Report: Negative Medications Medication SIG (Take, Route, Frequency, Duration) [...] needed Inhalation every 4 hrs, prn Not-Taking Immunizations Vaccine Route Administration Date Status Comme nts xFluzone Intradermal (18-64yrs)-trivalent ID Intradermal 08/15/2014 Administered Fluzone Quad-Medicare (6months&older) Unknown 07/07/2022 Administered Fluzone Quad (6months&older) IM Intramuscular 07/23/2016 Administered Fluzone Quad (6months&older) IM Intramuscular 06/25/2017 Administered Fluzone Quad (6months&older) IM Intramuscular 07/06/2018 Administered Fluzone Quad (6months&older) Unknown 09/05/2019 Administered Fluzone Intradermal Quad private(18-64yrs) ID Intradermal 08/13/2015 Administered Fluzone High Dose (65yr and older) IM Intramuscular 07/21/2020 Administered COVID 19 Moderna Unknown 09/26/2020 Administered COVID 19 Moderna Unknown 10/24/2020 Administered COVID 19 Moderna Unknown 06/24/2021 Administered Problems Problem Type SNOMED Code ICD Code Onset Dates Problem Status W/U Status Risk Notes Problem 913420008 History of DVT of lower extremity (Z86.718) Active confirmed Problem Osteopenia (124170827) Osteopenia (M85.80) Active confirmed Problem 88773349 Paresthesia (R20.2) Active confirmed Problem 480683887 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) Active confirmed Problem 284305198 Abnormal mammogram of left breast (R92.8) Active confirmed Problem 081245859 Pessary maintenance (Z46.89) Active confirmed Problem 804378660 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, 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) Active confirmed Vital Signs Heart Rate 71 /min 01/26/2025 Blood pressure diastolic 68 mm Hg 01/26/2025 Height 65 in 01/26/2025 Blood pressure systolic 120 mm Hg 01/26/2025 Weight 147.6 lbs 01/26/2025 BMI 24.56 kg/m2 01/26/2025 Encounters Encounter Location Date Provider Diagnosis [facility] [address] [facility] [address] [place] [id number] 03/04/2024 Cassi Gannon Preop general physic al exam Z01.818 ; Hair loss L65.9 ; Screening, lipid Z13.220 and History of DVT (deep vein thrombosis) Z86.718 Miguel [address] [facility] [address] [place] [id number] 06/16/2024 Ibeth Bingham Acute sinusitis J01. 90 [facility] [address] [facility] [address] [place] [id number] 07/01/2024 Cassi Crowdy Acute URI J06.9 and Bronchitis J40 [facility] [address] [facility] [address] [place] [id number] 07/08/2024 Cassi Crowdy Acute URI J06.9 ; Bronchitis J40 and History of DVT (deep vein thrombosis) Z86.718 [facility] [address] [facility] [address] [place] [id number] 01/26/2025 Cassi Crowdy Paresthesia R20.2 ; Chronic embolism and thrombosis of unspecified deep veins of left lower extremity I82.502 and BMI 24.0-24.9, adult Z68.24 [facility] [address] [place] [id number] 03/04/2024 Cassi Gannon Pre-op evaluation Z01.818 [facility] [address] [place] [id number] 01/27/2025 Cassi Kamardy Viviane [address] [place] [id number] 01/27/2025 Ibeth Bingham Assessments Encounter Date Diagnosis (ICD Code) Assessment Notes Treatment Notes Treatment Clinical Notes Section Notes 03/04/2024 Pre-op evaluation (ICD-10 - Z01.818) 06/16/2024 Acute sinusitis (ICD-10 - J01.90) 07/08/2024 Bronchitis (ICD-10 - J40) 07/08/2024 Acute URI (ICD-10 - J06.9) 01/26/2025 Paresthesia (ICD-10 - R20.2) Will get labs first. If labs are all normal, will need an x-ray of the neck and possibly nerve conduction studies on the legs. 01/26/2025 Chronic embolism and thrombosis of unspecified deep veins of left lower extremity (ICD-10 - I82.502) 07/01/2024 Bronchitis (ICD-10 - J40) 07/01/2024 Acute URI (ICD-10 - J06.9) 03/04/2024 Preop general physical exam (ICD-10 - Z01.818) Patient's labs were normal and her EKG and CXR were unremarkable. She is cleared for surgery. 03/04/2024 Hair loss (ICD-10 - L65.9) 03/04/2024 Screening, lipid (ICD-10 - Z13.220) 01/26/2025 BMI 24.0-24.9, adult (ICD-10 - Z68.24) 07/08/2024 History of DVT (deep vein thrombosis) (ICD-10 - Z86.718) 03/04/2024 History of DVT (deep vein thrombosis) (ICD-10 - Z86.718) Will need to stop the eliquis 3 days prior to procedure and can resume the day after the procedure. Plan Of Treatment Pending Test Test Name Order Date Bone density 01/30/2025 TSH 03/01/2021 CMP 03/01/2021 Mammogram 03/01/2021 lipid profile 03/01/2021 Cologuard 01/30/2025 Insurance Providers Payer Name Payer Address Payer Phone Subscriber Number Group Number Insured Name Patient Relationship to Insured Coverage Start Date Coverage End Date [employer] (MEDICAR E) [address] [address] [place] [phone] [id number] Glenn BUSCH Spouse - patient is the spouse of the insured Medical (General) History Medical History History ICD Code LT Leg DVT, 10/2018 Chronic Phlebitis LT Leg SVT, 08/2022 Surgical History Surgery Date(Month/Year) RT Breast Cyst Removal 2000 Hysterectomy 07/11/2021 Bladder Suspension 07/20/2022 Left Knee Replacement 03/31/2024 Hospitalization History Reason Date(Month/Year) LT Leg Pain, DX with DVT- [facility] ER 019
--- OUTSIDE RECORDS SUMMARY | 2025-02-06 09:19 | XMS_ITS ---
Author Organization Unknown TREATMENT PLAN [facility] Start Date Provider Encounter for Check-up [id number] [facility]
--- NOTE | 2025-02-06 09:25 | XR_ITS ---
FINAL REPORT TECHNIQUE: Bone densitometry calculations of the lumbar spine and bilateral hips were obtained. CLINICAL HISTORY: SCREENING COMPARISON: 10/07/2022 FINDINGS: Using L1-4, the bone mineral density of the spine is 1.1-2 g/cm2, corresponding to T-score of 0.7. Using the left hip, the bone mineral density of the femoral neck is 0.702 g/cm2, corresponding to a T-score of -1.3. Using the right hip, the bone mineral density of the femoral neck is 0.648 g/cm?, corresponding to a T-score of -1.8. NOTE: T-score: Standard deviation compared with peak bone mass of young adult mean. *Following the recommendations of the International Society of Bone densitometry, classification of hip BMD is based on the lower of two T-scores; total hip or femoral neck. IMPRESSION: Diminished bone mineral density of the bilateral hips consistent with osteopenia. Normal bone mineral density of the lumbar spine, although the bone mineral density may be artificially elevated secondary to sclerotic changes in the lumbar spine. Reviewed, Interpreted and Dictated by Rory Osborn MD Transcribed by Chelsy Leon Authenticated and [facility]
== END 2025-02-06 23:59 | disposition home or self-care (01) ==
LOC: RAD 09:15
PROVIDERS: PCP Family Medicine; Visit Provider Family Medicine
DX: M85.852 Other specified disorders of bone density and structure, left thigh (principal); M85.851 Other specified disorders of bone density and structure, right thigh; Z13.820 Encounter for screening for osteoporosis
CPT/HCPCS: 77080